=== PATIENT | female | born 1995 | race African-American/Black ===

== ENCOUNTER 2021-07-28 16:38 | Emergency (ER) | payer SELFPAY ==
[2021-07-28 16:59] VITALS: BP 121/78; PULSE 87; TEMP 98.6; BMI 23.9
[2021-07-28] MEDS ORDERED: SODIUM CHLORIDE 0.9% 500 ML INFUS.BAG IV ONE (17:24)
[2021-07-28] MEDS ORDERED: ACETAMINOPHEN 1000 MG/100 ML BAG IVPB ONE (17:24)
[2021-07-28] MEDS ORDERED: KETOROLAC TROMETHAMINE 15 MG/ML VIAL IVPUSH ONE (18:07)
[2021-07-28] MEDS ORDERED: ACETAMINOPHEN INJECTION 100 ML IVPB ONE (18:14)
[2021-07-28 19:05] LABS: BASO % 0.3 % (0-2.0); HEMATOCRIT 29.5 % (32.4-45.2); HEMOGLOBIN 9.2 GM/dL (10.7-15.3); LYMPH % 13.8 % (8-40); MCH 21.2 pg (25.7-33.7); MCHC 31.3 g/dl (32.0-36.0); MEAN CELL VOLUME 67.8 fl (80-96); MEAN PLT VOLUME 9.7 fl (7.5-11.1); NEUT % 79.9 % (42.8-82.8); PLATELET COUNT 186 10^3/uL (134-434); RBC 4.35 M/mm3 (3.60-5.2); RDW 18.3 % (11.6-15.6); WHITE BLOOD COUNT 6.2 K/mm3 (4.0-10.0)
[2021-07-28 19:12] LABS: HCG,QUALITATIVE URINE Negative
[2021-07-28 19:15] LABS: EPI CELLS >36 /uL (0-25.1); HYALINE CASTS 8 /uL (0-3.1); PH,URINE 5.5 (5.0-8.0); URINE APPEARANCE CLOUDY; URINE BACTERIA 133 /uL (0-1359); URINE BILIRUBIN NEGATIVE (NEGATIVE); URINE COLOR YELLOW; URINE GLUCOSE (UA) NEGATIVE (NEGATIVE); URINE KETONE TRACE (NEGATIVE); URINE LEUK ESTERASE NEGATIVE (NEGATIVE); URINE NITRITE NEGATIVE (NEGATIVE); URINE PROTEIN 1+ (NEGATIVE); URINE RBC 2603 /uL (0-23.9); URINE WBC 49 /uL (0-25.8)
[2021-07-28 19:24] LABS: CHLORIDE 108 mmol/L (98-107); SODIUM 140 mmol/L (136-145)
[2021-07-28 19:27] LABS: CALCIUM 8.6 mg/dL (8.5-10.1)
[2021-07-28 19:28] LABS: ALBUMIN 4.3 g/dl (3.4-5.0); ANION GAP 7 MMOL/L (8-16); BLOOD UREA NITROGEN 8.3 mg/dL (7-18); CO2 24 mmol/L (21-32); GLUCOSE,RANDOM 103 mg/dL (74-106)
[2021-07-28 19:31] LABS: CREATININE 0.8 mg/dL (0.55-1.3); SGOT/AST 23 U/L (15-37); SGPT/ALT 14 U/L (13-61)
[2021-07-28 19:33] LABS: BILIRUBIN,TOTAL 0.4 mg/dL (0.2-1); TOT PROT 7.6 g/dl (6.4-8.2)
[2021-07-28 19:34] LABS: ALK PHOS 60 U/L (45-117)
[2021-07-28] MEDS ORDERED: KETOROLAC TROMETHAMINE 15 MG/ML VIAL ONE (20:15)
[2021-07-28 20:33] LABS: ANISOCYTOSIS 3+; MACROCYTOSIS 1+; OVALOCYTE 1+; PLATELET ESTIMATE NORMAL; TEAR DROP CELLS 1+
== END 2021-07-28 23:01 | disposition home or self-care (01) ==
LOC: JER 16:38 → EDBD 16:38 → JER 23:01
PROC: 3E033GC Introduction of Other Therapeutic Substance into Peripheral Vein, Percutaneous Approach (ICD-10-PCS; principal; 2021-07-28)
DX: R10.31 Right lower quadrant pain (principal); N94.6 Dysmenorrhea, unspecified
CPT/HCPCS: 36415; 74176-TC; 76775-TC; 76830-TC; 76856-TC; 80053; 81003; 84702; 84703; 85025; 99285-25